=== PATIENT | male | born 1995 | race Caucasian/White ===

== ENCOUNTER 2017-05-06 21:44 | Emergency (ER) | payer BC ==
[2017-05-06] MEDS ORDERED: Silver Sulfadiazine 1% Cream 50 GM JAR ONE (22:03)
== END 2017-05-06 23:40 | disposition home or self-care (01) ==
LOC: SCSER 21:44
DX: T23.261A Burn of second degree of back of right hand, initial encounter (principal); T20.20XA Burn of second degree of head, face, and neck, unspecified site, initial encounter; T22.211A Burn of second degree of right forearm, initial encounter; T31.0 Burns involving less than 10% of body surface; F90.9 Attention-deficit hyperactivity disorder, unspecified type; Z79.899 Other long term (current) drug therapy; X03.0XXA Exposure to flames in controlled fire, not in building or structure, initial encounter; Y92.828 Other wilderness area as the place of occurrence of the external cause
CPT/HCPCS: 16000; 96374; J2270